=== PATIENT | male | born 1940 | race Caucasian/White ===

== ENCOUNTER 2021-03-11 12:39 | Outpatient (CLI) | payer MEDICARE, MEDICAID ==
[2021-03-11 14:05] LABS: CREATININE 1.14 mg/dL (0.7-1.3)
[2021-03-11] MEDS ORDERED: VISIPAQUE 320 MG/ML, 150ML BOTTLE ONE (15:06)
== END 2021-03-11 23:59 | disposition home or self-care (01) ==
LOC: CVU 12:39 → RAD 23:59
PROVIDERS: ATTEND Internal Medicine Cardiovascular Disease
DX: Z01.818 Encounter for other preprocedural examination (principal); I65.23 Occlusion and stenosis of bilateral carotid arteries; I11.0 Hypertensive heart disease with heart failure; I50.32 Chronic diastolic (congestive) heart failure; I45.10 Unspecified right bundle-branch block; I70.0 Atherosclerosis of aorta; J84.10 Pulmonary fibrosis, unspecified; K40.90 Unilateral inguinal hernia, without obstruction or gangrene, not specified as recurrent; M51.36 Other intervertebral disc degeneration, lumbar region; M47.816 Spondylosis without myelopathy or radiculopathy, lumbar region
CPT/HCPCS: 36415; 71275; 74174; 82565; 93880; Q9967

== ENCOUNTER 2021-03-19 10:13 | Observation (INO) | payer MEDICARE, MEDICAID ==
[~2021-03-19] VITALS: Ht 188 cm; Wt 120.6 kg
[2021-03-19] MEDS ORDERED: ATOR20TA37 PO (10:47)
[2021-03-19] MEDS ORDERED: LATA7.5D EACHEYE (10:47)
[2021-03-19] MEDS ORDERED: TAMS-11 PO (10:47)
[2021-03-19] MEDS ORDERED: ALLO300T PO (10:47)
[2021-03-19] MEDS ORDERED: TRAM50TA2 PO (10:47)
[2021-03-19] MEDS ORDERED: FINA5TAB4 PO (10:47)
[2021-03-19] MEDS ORDERED: OXYB5TAB10 PO (10:47)
[2021-03-19] MEDS ORDERED: AMLO-211 PO (10:47)
[2021-03-19] MEDS ORDERED: OMEP-110 PO (10:47)
[2021-03-19] MEDS ORDERED: METO-99 PO (10:47)
[2021-03-19] MEDS ORDERED: TOLT4CAP12 PO (10:47)
[2021-03-19] MEDS ORDERED: METF850T10 PO (10:47)
[2021-03-19 10:50] VITALS: BP 150/86
[2021-03-19] MEDS ORDERED: SODIUM CHLORIDE 0.9% 1,000 ML IV SCH (11:00)
[2021-03-19 11:06] LABS: BASOPHILS % (AUTO) 0 % (0-1); EOSINOPHILS % (AUTO) 1 % (1-7); LYMPHOCYTES % (AUTO) 28 % (22-44); MEAN CORPUSCULAR HEMOGLOBIN 29.8 pg (27.5-34.5); MEAN CORPUSCULAR HGB CONC 33.6 g/dL (33.2-36.2); MEAN PLATELET VOLUME 8.5 fL (7.4-10.4); MONOCYTES % (AUTO) 8 % (2-9); NEUTROPHILS % (AUTO) 62 % (42-75); PLATELET COUNT 231 x10^3/uL (130-400); RED CELL DISTRIBUTION WIDTH 14.4 % (9.4-14.8)
[2021-03-19 11:09] LABS: ANION GAP 11 mmol/L (5-15); CALCIUM 8.9 mg/dL (8.5-10.1); CHLORIDE 106 mmol/L (98-107); CREATININE 0.99 mg/dL (0.7-1.3)
[2021-03-19] MEDS ORDERED: HEPARIN 1,000 UNITS/ML, 10ML ONE (12:55)
[2021-03-19] MEDS ORDERED: VERAPAMIL 2.5 MG/ML, 2ML ONE (12:55)
[2021-03-19] MEDS ORDERED: TICAGRELOR 90 MG TABLET ONE (12:55)
[2021-03-19] MEDS ORDERED: BIVALIRUDIN 250 MG ONE ×2 (12:55→13:19)
[2021-03-19] MEDS ORDERED: MIDAZOLAM 1 MG/ML, 5ML ONE (12:55)
[2021-03-19] MEDS ORDERED: LIDOCAINE-MPF 1%, 5ML ONE (12:55)
[2021-03-19] MEDS ORDERED: FENTANYL PF 100 MCG/2ML ONE (12:55)
[2021-03-19] MEDS ORDERED: BIVALIRUDIN 250 MG in SODIUM CHLORIDE 0.9% 50 ML IV SCH (14:30)
[2021-03-19] MEDS: SODIUM CHLORIDE 0.9% 1,000 ML IV SCH ×2 (14:30→21:33)
[2021-03-19 14:45] VITALS: BP 161/83
[2021-03-19] MEDS ORDERED: ATORVASTATIN 20 MG TABLET PO SCH (21:00)
[2021-03-19] MEDS ORDERED: metFORMIN 850 MG TABLET PO SCH (21:00)
[2021-03-19 21:08] VITALS: BP 126/74
[2021-03-19] MEDS: METOPROLOL TARTRATE 100 MG TAB PO SCH (21:31)
[2021-03-19] MEDS: TICAGRELOR 90 MG TABLET PO SCH (21:32)
[2021-03-19] MEDS: OXYBUTYNIN CHLORIDE 5 MG TABLET PO SCH (21:32)
[2021-03-20 02:15] VITALS: BP 138/80
[2021-03-20 04:46] LABS: ANION GAP 10 mmol/L (5-15); CHLORIDE 110 mmol/L (98-107); CREATININE 0.94 mg/dL (0.7-1.3)
[2021-03-20] MEDS: SODIUM CHLORIDE 0.9% 1,000 ML IV SCH (05:07)
[2021-03-20 07:50] VITALS: BP 163/89
[2021-03-20] MEDS ORDERED: OMEPRAZOLE 20 MG CAPSULE.DR PO SCH (09:00)
[2021-03-20] MEDS ORDERED: TOLTERODINE LA 4MG CAP.ER.24H PO SCH (09:00)
[2021-03-20] MEDS ORDERED: ALLOPURINOL 300 MG TABLET PO SCH (09:00)
[2021-03-20] MEDS ORDERED: AMLODIPINE 10 MG TAB PO SCH (09:00)
[2021-03-20] MEDS ORDERED: TAMSULOSIN 0.4 MG CAP.ER.24H PO SCH (09:00)
[2021-03-20] MEDS ORDERED: ASPIRIN 81 MG TABLET EC PO SCH (09:00)
[2021-03-20] MEDS ORDERED: FINASTERIDE 5 MG TABLET PO SCH (09:00)
[2021-03-20] MEDS ORDERED: metFORMIN 850 MG TABLET PO SCH (09:00)
[2021-03-20] MEDS ORDERED: POTASSIUM CHLORIDE 20 MEQ TAB.ER.PRT PO ONE (09:30)
[2021-03-20] MEDS: OXYBUTYNIN CHLORIDE 5 MG TABLET PO SCH (09:45)
[2021-03-20] MEDS: METOPROLOL TARTRATE 100 MG TAB PO SCH (09:45)
[2021-03-20] MEDS: TICAGRELOR 90 MG TABLET PO SCH (09:45)
[2021-03-20] MEDS ORDERED: ASPI-963 PO (11:48)
[2021-03-20] MEDS ORDERED: TICA90TA PO (11:48)
== END 2021-03-20 12:08 | disposition home or self-care (01) ==
LOC: CACL 10:13 → 5SO 14:24 → CACL 23:34 → 5SO 23:35 → DCLOUNGE 03-20 11:53
PROVIDERS: ADMIT Internal Medicine Cardiovascular Disease; ATTEND Internal Medicine Cardiovascular Disease
DX: I35.0 Nonrheumatic aortic (valve) stenosis (principal); I11.0 Hypertensive heart disease with heart failure; I50.32 Chronic diastolic (congestive) heart failure; I25.10 Atherosclerotic heart disease of native coronary artery without angina pectoris; E11.9 Type 2 diabetes mellitus without complications; G47.33 Obstructive sleep apnea (adult) (pediatric); E78.5 Hyperlipidemia, unspecified; J44.9 Chronic obstructive pulmonary disease, unspecified; Z01.810 Encounter for preprocedural cardiovascular examination; Z79.899 Other long term (current) drug therapy
CPT/HCPCS: 36415; 80048; 85025; 93454; 93571; 94660; 99156; 99157; C1725; C1769; C1874; C1887; C1894; C9600; G0378; J0583; J1644; J2250; J3010; Q9967

== ENCOUNTER 2021-03-30 08:52 | Inpatient (IN) | payer MEDICARE, MEDICAID ==
[~2021-03-30] VITALS: Ht 188 cm; Wt 125.0 kg
[2021-03-30] MEDS: ASPIRIN 81 MG TABLET EC PO SCH (06:00)
[~2021-03-30 08:52] MED LIST: ALLO300T PO; AMLO-211 PO; ASPI-963 PO; ATOR20TA37 PO; FINA5TAB4 PO; LATA7.5D EACHEYE; METF850T10 PO; METO-99 PO; OMEP-110 PO; OXYB5TAB10 PO; TAMS-11 PO; TICA90TA PO; TOLT4CAP12 PO; TRAM50TA2 PO
[2021-03-30] MEDS ORDERED: ONDANSETRON 2MG/ML, 2ML IV PRN (10:30)
[2021-03-30 10:56] LABS: BASOPHILS % (AUTO) 1 % (0-1); EOSINOPHILS % (AUTO) 1 % (1-7); LYMPHOCYTES % (AUTO) 18 % (22-44); MEAN CORPUSCULAR HEMOGLOBIN 29.5 pg (27.5-34.5); MEAN CORPUSCULAR HGB CONC 33.9 g/dL (33.2-36.2); MONOCYTES % (AUTO) 7 % (2-9); NEUTROPHILS % (AUTO) 74 % (42-75); PLATELET COUNT 259 x10^3/uL (130-400); RED BLOOD COUNT 4.61 x10^6/uL (4.38-5.82)
[2021-03-30 11:05] LABS: ALANINE AMINOTRANSFERASE 29 U/L (12-78); ALBUMIN 4.1 g/dL (3.4-5.0); ANION GAP 9 mmol/L (5-15); CALCIUM 8.7 mg/dL (8.5-10.1); CHLORIDE 108 mmol/L (98-107); CREATININE 1.09 mg/dL (0.7-1.3); INTERNATIONAL NORMALIZED RATIO 1.03 (0.93-1.1)
[2021-03-30 11:07] LABS: ALKALINE PHOSPHATASE 84 U/L (45-117); BILIRUBIN,TOTAL 0.8 mg/dL (0.2-1.0); TOTAL PROTEIN 7.5 g/dL (6.4-8.2)
[2021-03-30] MEDS ORDERED: PROTAMINE SULFATE 10 MG/ML, 5ML ONE (11:21)
[2021-03-30] MEDS ORDERED: DEXAMETHASONE 4 MG/ML, 1ML ONE (11:27)
[2021-03-30] MEDS ORDERED: CEFAZOLIN 1,000 MG ONE (11:27)
[2021-03-30] MEDS ORDERED: FENTANYL PF 250 MCG/5ML ONE (11:27)
[2021-03-30] MEDS ORDERED: PROPOFOL 10 MG/ML, 20ML ONE (11:30)
[2021-03-30] MEDS ORDERED: ROCURONIUM 10MG/ML,5ML ONE (11:30)
[2021-03-30] MEDS ORDERED: SUCCINYLCHOLINE 20 MG/ML, 10ML ONE (11:30)
[2021-03-30] MEDS ORDERED: VERAPAMIL 2.5 MG/ML, 2ML ONE (11:32)
[2021-03-30] MEDS ORDERED: PHENYLEPHRINE 10 MG/ML ONE (11:32)
[2021-03-30] MEDS ORDERED: ONDANSETRON 2MG/ML, 2ML ONE (11:32)
[2021-03-30] MEDS: FINASTERIDE 5 MG TABLET PO SCH (12:30)
[2021-03-30] MEDS: TAMSULOSIN 0.4 MG CAP.ER.24H PO SCH (12:30)
[2021-03-30] MEDS ORDERED: LABETALOL 20 MG/4 ML IVPush PRN (13:00)
[2021-03-30] MEDS ORDERED: hydrALAzine 20 MG/ML, 1ML IVPush PRN (13:00)
[2021-03-30] MEDS ORDERED: ACETAMINOPHEN 325 MG TABLET PO PRN (13:00)
[2021-03-30] MEDS ORDERED: MIDAZOLAM 1 MG/ML, 2ML ONE (13:25)
[2021-03-30 14:30] VITALS: BP 150/78
[2021-03-30] MEDS: METOPROLOL TARTRATE 100 MG TAB PO SCH (17:34)
[2021-03-30 18:53] VITALS: BP 166/94
[2021-03-30] MEDS ORDERED: ATORVASTATIN 20 MG TABLET PO SCH (21:00)
[2021-03-30] MEDS: metFORMIN 850 MG TABLET PO SCH (21:18)
[2021-03-30] MEDS: TICAGRELOR 90 MG TABLET PO SCH (21:18)
[2021-03-30] MEDS: OXYBUTYNIN CHLORIDE 5 MG TABLET PO SCH (21:20)
[2021-03-31 00:49] VITALS: BP 151/71
[2021-03-31 01:40] VITALS: BP 137/74
[2021-03-31 05:01] LABS: BASOPHILS % (AUTO) 0 % (0-1); EOSINOPHILS % (AUTO) 0 % (1-7); LYMPHOCYTES % (AUTO) 10 % (22-44); MEAN CORPUSCULAR HEMOGLOBIN 29.6 pg (27.5-34.5); MEAN CORPUSCULAR HGB CONC 33.4 g/dL (33.2-36.2); MEAN PLATELET VOLUME 8.1 fL (7.4-10.4); MONOCYTES % (AUTO) 6 % (2-9); NEUTROPHILS % (AUTO) 84 % (42-75); PLATELET COUNT 226 x10^3/uL (130-400); RED BLOOD COUNT 4.22 x10^6/uL (4.38-5.82); RED CELL DISTRIBUTION WIDTH 13.9 % (9.4-14.8)
[2021-03-31 05:11] LABS: ANION GAP 10 mmol/L (5-15); CALCIUM 8.1 mg/dL (8.5-10.1); CHLORIDE 109 mmol/L (98-107); CREATININE 0.99 mg/dL (0.7-1.3)
[2021-03-31 05:59] VITALS: BP 140/69
[2021-03-31] MEDS ORDERED: OMEPRAZOLE 20 MG CAPSULE.DR PO SCH (06:00)
[2021-03-31] MEDS: METOPROLOL TARTRATE 100 MG TAB PO SCH (06:02)
[2021-03-31 06:38] VITALS: BP 144/79
[2021-03-31] MEDS: metFORMIN 850 MG TABLET PO SCH (08:24)
[2021-03-31] MEDS ORDERED: TOLTERODINE LA 4MG CAP.ER.24H PO SCH (09:00)
[2021-03-31] MEDS ORDERED: ALLOPURINOL 300 MG TABLET PO SCH (09:00)
[2021-03-31] MEDS ORDERED: AMLODIPINE 10 MG TAB PO SCH (09:00)
[2021-03-31] MEDS: TAMSULOSIN 0.4 MG CAP.ER.24H PO SCH (09:49)
[2021-03-31] MEDS: OXYBUTYNIN CHLORIDE 5 MG TABLET PO SCH (09:49)
[2021-03-31] MEDS: FINASTERIDE 5 MG TABLET PO SCH (09:49)
[2021-03-31] MEDS: ASPIRIN 81 MG TABLET EC PO SCH (09:49)
[2021-03-31] MEDS: TICAGRELOR 90 MG TABLET PO SCH (09:50)
[2021-03-31 13:50] VITALS: BP 138/69
[2021-03-31] MEDS ORDERED: metFORMIN 850 MG TABLET PO SCH (17:00)
== END 2021-03-31 16:34 | disposition home health service (06) | DRG 266 ==
LOC: ORIP 08:52 → 5SO 15:29 → DCLOUNGE 03-31 16:20
PROVIDERS: ADMIT Internal Medicine Cardiovascular Disease; ATTEND Internal Medicine Cardiovascular Disease
PROC: B24BZZ4 Ultrasonography of Heart with Aorta, Transesophageal (ICD-10-PCS; 2021-03-30)
PROC: 04HY32Z Insertion of Monitoring Device into Lower Artery, Percutaneous Approach (ICD-10-PCS; 2021-03-30)
PROC: 03HY32Z Insertion of Monitoring Device into Upper Artery, Percutaneous Approach (ICD-10-PCS; 2021-03-30)
PROC: B3101ZZ Fluoroscopy of Thoracic Aorta using Low Osmolar Contrast (ICD-10-PCS; 2021-03-30)
PROC: 02RF38Z Replacement of Aortic Valve with Zooplastic Tissue, Percutaneous Approach (ICD-10-PCS; principal; 2021-03-30 12:00)
DX: I35.0 Nonrheumatic aortic (valve) stenosis (principal); Z00.6 Encounter for examination for normal comparison and control in clinical research program; I50.33 Acute on chronic diastolic (congestive) heart failure; D72.829 Elevated white blood cell count, unspecified; E11.9 Type 2 diabetes mellitus without complications; E66.01 Morbid (severe) obesity due to excess calories; E78.5 Hyperlipidemia, unspecified; G47.33 Obstructive sleep apnea (adult) (pediatric); I11.0 Hypertensive heart disease with heart failure; I25.10 Atherosclerotic heart disease of native coronary artery without angina pectoris; I45.10 Unspecified right bundle-branch block; N40.1 Benign prostatic hyperplasia with lower urinary tract symptoms; R33.8 Other retention of urine; Z20.822 Contact with and (suspected) exposure to COVID-19; Z79.899 Other long term (current) drug therapy; Z79.84 Long term (current) use of oral hypoglycemic drugs; Z68.34 Body mass index [BMI] 34.0-34.9, adult
CPT/HCPCS: 33361; 36415; 76937; 80048; 80053; 85025; 85610; 86850; 86900; 86923; 87635; 93005; 93306; 93312; 93321; 93325; 93355; C1760; C1769; C1894; G0378; J0690; J1100; J2250; J2405; J2704; J2720; J3010; J0330; J0360; J2370; Q9967

== ENCOUNTER → 2021-05-11 | Outpatient (CLI) | payer MEDICARE, MEDICAID ==
[~2021-05-11] MED LIST changes: -TOLT4CAP12 PO; +TOLT4CAP27 PO
== END | disposition home or self-care (01) ==
LOC: CVU 09:29
PROVIDERS: ATTEND Internal Medicine Cardiovascular Disease
DX: Z01.810 Encounter for preprocedural cardiovascular examination (principal); I05.8 Other rheumatic mitral valve diseases; I65.29 Occlusion and stenosis of unspecified carotid artery; I11.9 Hypertensive heart disease without heart failure; I45.10 Unspecified right bundle-branch block; E11.9 Type 2 diabetes mellitus without complications; Z95.2 Presence of prosthetic heart valve
CPT/HCPCS: 93306; 93356